=== PATIENT | female | born 1965 | race Caucasian/White ===

== ENCOUNTER 2016-12-12 16:36 | Emergency (ER) | payer SELFPAY ==
[2016-12-12 19:14] VITALS: BP 119/80
== END 2016-12-12 19:14 | disposition home or self-care (01) ==
LOC: ED 16:36
DX: B34.9 Viral infection, unspecified (principal); N39.0 Urinary tract infection, site not specified; E11.9 Type 2 diabetes mellitus without complications; Z79.84 Long term (current) use of oral hypoglycemic drugs
CPT/HCPCS: Q0162

== ENCOUNTER 2018-05-20 16:38 | Emergency (ER) | payer SELFPAY ==
[~2018-05-20] VITALS: Ht 162.6 cm; Wt 73.0 kg
[2018-05-20 16:51] VITALS: Ht 162.6 cm; Wt 73.0 kg
[2018-05-20 17:30] LABS: BASOPHIL % 0.3 % (0-2); PLATELET COUNT 280 x10^3mcL (130-400); RED CELL DISTRIBUTION WIDTH 12.8 % (11.5-14.5)
[2018-05-20 17:32] LABS: microscopic required? YES; urine erythrocyte 1+ (NEGATIVE)
[2018-05-20 17:51] LABS: CARBON DIOXIDE 31.5 mmol/L (21-32); CHLORIDE SERUM 98 mmol/L (98-107); CREATININE SERUM 0.6 mg/dL (0.6-1.0); GFR1 > 60 mL/min; GLUCOSE SERUM 155 mg/dL (74-106); POTASSIUM SERUM 3.1 mmol/L (3.5-5.1); SODIUM SERUM 136 mmol/L (136-145)
[2018-05-20 17:56] LABS: ALKALINE PHOSPHATASE 130 U/L (46-116); ALT/SGPT 43 U/L (14-59); AST/SGOT 19 U/L (15-37); BILIRUBIN TOTAL 0.1 mg/dL (0.20-1.00); TOTAL PROTEIN, SERUM 7.7 g/dL (6.4-8.2)
[2018-05-20 17:57] LABS: ALBUMIN 3.3 g/dL (3.4-5.0)
[2018-05-20 18:41] VITALS: BP 106/59
== END 2018-05-20 19:00 | disposition home or self-care (01) ==
LOC: ED 16:38
PROVIDERS: Emergency Medicine
DX: N12 Tubulo-interstitial nephritis, not specified as acute or chronic (principal); M79.1 Myalgia; E11.9 Type 2 diabetes mellitus without complications
CPT/HCPCS: J1885; J1956; J7030